=== PATIENT | female | born 1970 | race Caucasian/White ===

== ENCOUNTER → 2019-03-08 | Outpatient (CLI) | payer BC ==
[~2019-03-08] MED LIST: CARV3.12 PO; DIPH50 PO; ESTR1PAT86 TD; FAMO-136 PO; HYDR-4068 PO; LEVO5TAB13 PO; LORA0.5T2 PO; METH750T3 PO; MONT10TA24 PO; PRED5TAB PO; TEST2.5G6 TD; [UNRECOGNIZED DRUG - CODE] PO
== END | disposition home or self-care (01) ==
LOC: SHCH 15:45
PROVIDERS: ATTEND Internal Medicine Cardiovascular Disease
DX: I47.1 Supraventricular tachycardia (principal)
CPT/HCPCS: 93306